=== PATIENT | female | born 1990 | race American Indian/Alaskan Native ===

== ENCOUNTER 2016-04-06 08:12 | Emergency (ER) | payer MEDICAID ==
[2016-04-06 08:49] LABS: Basophils % (Auto) 0.8 % (0.0-1.8); Eosinophils % (Auto) 2.2 % (0.0-4.3); Hematocrit 37.1 % (30.3-42.9); Hemoglobin 11.6 gm/dl (10.1-14.3); Mean Corpuscular HGB Conc 31 % (30-34); Mean Corpuscular Hemoglobin 27 pg (28-32); Mean Corpuscular Volume 87 fl (79-97); Platelet Count 329 K/mm3 (140-440); Red Blood Count 4.29 M/mm3 (3.65-5.03); Red Cell Distribution Width 16.9 % (13.2-15.2); White Blood Count 8.8 K/mm3 (4.5-11.0)
[2016-04-06 08:51] LABS: Bilirubin,Urine NEG (Negative); Blood,Urine NEG (Negative); Ketones,Urine NEG (Negative); Leukocyte Esterase,Urine NEG (Negative); Nitrite,Urine NEG (Negative); Protein,Urine <15 mg/dL mg/dL (Negative); Urobilinogen,Urine < 2.0 mg/dL (<2.0)
[2016-04-06] MEDS ORDERED: MORPHINE IV ONE (09:02)
[2016-04-06] MEDS ORDERED: ZOFRAN IV ONE (09:02)
[2016-04-06 09:06] LABS: Alanine Aminotransferase 11 units/L (7-56); Albumin 4.4 g/dL (3.9-5); Albumin/Globulin Ratio 1.1 %; Alkaline Phosphatase 69 units/L (35-129); Anion Gap 18 mmol/L; BUN/Creatinine Ratio 26.25; Bilirubin,Total 0.2 mg/dL (0.1-1.2); Blood Urea Nitrogen 21 mg/dL (7-17); Calcium 9.3 mg/dL (8.4-10.2); Carbon Dioxide 24 mmol/L (22-30); Chloride 99.2 mmol/L (98-107); Glucose 92 mg/dL (65-100); Lipase 37 units/L (13-60); Potassium 4.3 mmol/L (3.6-5.0); Sodium 137 mmol/L (137-145); Total Protein 8.5 g/dL (6.3-8.2)
--- NOTE | 2016-04-06 09:21 | Emergency Department Report ---
HPI - General Chief Complaint: Abdominal Pain Time Seen by Provider: 04/06/16 08:54 - HPI HPI: Room 3 The patient is a 25-year-old female presenting with a chief complaint of abdominal pain. The patient states her symptoms began this morning at approximately 02:00. The patient states she developed suprapubic cramping abdominal pain that increased after having intercourse. Patient states the pain has been constant and cramping in nature. Patient admits to nausea but denies vomiting or diarrhea. Patient denies dysuria, vaginal discharge or abnormal vaginal bleeding. Patient denies any history of fever. The patient states her last cycle occurred to 2016 was within normal limits. The patient currently gives her pain a score of 3/10. The patient states her last meal was before 02:00 before the onset of her pain Location: Suprapubic Region Duration: Constant since 02:00 Quality: Cramping Severity: 3/10 Modifying factors: [see above] Context: [see above] Mode of transportation: Not driving ED Past Medical Hx - Surgical History Past Surgical History?: Yes Additional Surgical History: Right breast cyst - Family History Family history: no significant - Social History Smoking Status: Never Smoker Substance Use Type: None (denies illicit drug use), Alcohol (occasional) - Medications Home Medications: Home Medications Medication Instructions Recorded Confirmed Last Taken Type HYDROcodone/APAP 5-325 [[place] 1 - 2 each PO Q6HR PRN #10 tablet 04/06/16 Unknown Rx 5/325] Ibuprofen [Motrin 800 MG tab] 800 mg PO Q8HR PRN #20 tablet 04/06/16 Unknown Rx ED Review of Systems ROS: Stated complaint: ABD PAIN Other details as noted in HPI Comment: All other systems reviewed and negative Constitutional: denies: chills, fever Eyes: denies: eye pain, eye discharge, vision change ENT: denies: ear pain, throat pain Respiratory: denies: cough, shortness of breath, wheezing Cardiovascular: denies: chest pain, palpitations Endocrine: no symptoms reported Gastrointestinal: abdominal pain, nausea. denies: vomiting Genitourinary: denies: urgency, dysuria, discharge, abnormal menses Musculoskeletal: denies: back pain, joint swelling, arthralgia Skin: denies: rash, lesions Neurological: denies: headache, weakness, paresthesias Psychiatric: denies: anxiety, depression Hematological/Lymphatic: denies: easy bleeding, easy bruising Physical Exam - Physical Exam Vital Signs: Vital Signs 04/06/16 08:19 Temperature 98.6 F Pulse Rate 75 Respiratory 18 Rate Blood Pressure 120/68 O2 Sat by Pulse 100 Oximetry Physical Exam: GENERAL: The patient is well-developed well-nourished female sleeping on stretcher not appearing to be in acute distress. [] HEENT: Normocephalic. Atraumatic. Extraocular motions are intact. Patient has moist mucous membranes. NECK: Supple. Trachea midline CHEST/LUNGS: Clear to auscultation. There is no respiratory distress noted. HEART/CARDIOVASCULAR: Regular. There is no tachycardia. There is no gallop rub or murmur. ABDOMEN: Abdomen is soft, with mild tenderness to palpation in the right lower quadrant and suprapubic region. There is no guarding. Patient has normal bowel sounds. There is no abdominal distention. SKIN: There is no rash. There is no edema. There is no diaphoresis. NEURO: The patient is awake, alert, and oriented. The patient is cooperative. The patient has normal speech MUSCULOSKELETAL: There is no CVA tenderness. There is no evidence of acute injury. ED Course Vital Signs 04/06/16 08:19 Temperature 98.6 F Pulse Rate 75 Respiratory 18 Rate Blood Pressure 120/68 O2 Sat by Pulse 100 Oximetry ED Medical Decision Making - Lab Data Result diagrams: 04/06/16 08:34 04/06/16 08:34 Laboratory Tests 04/06/16 04/06/16 04/06/16 08:34 08:34 08:35 WBC 8.8 RBC 4.29 Hgb 11.6 Hct 37.1 MCV 87 MCH 27 L MCHC 31 RDW 16.9 H Plt Count 329 Lymph % (Auto) 47.2 H [place] % (Auto) 9.0 H Eos % (Auto) 2.2 Baso % (Auto) 0.8 Lymph # 4.2 [place] # 0.8 Eos # 0.2 Baso # 0.1 Seg Neutrophils % 40.8 Seg Neutrophils # 3.6 Sodium 137 Potassium 4.3 Chloride 99.2 Carbon Dioxide 24 Anion Gap 18 BUN 21 H Creatinine 0.8 Estimated GFR > 60 BUN/Creatinine Ratio 26.25 Glucose 92 Calcium 9.3 Total Bilirubin 0.2 AST 22 ALT 11 Alkaline Phosphatase 69 Total Protein 8.5 H Albumin 4.4 Albumin/Globulin Ratio 1.1 Lipase 37 Urine Color Yellow Urine Turbidity Clear Urine pH 5.0 Ur Specific [place] 1.027 Urine Protein <15 mg/dl Urine Glucose (UA) Neg Urine Ketones Neg Urine Blood Neg Urine Nitrite Neg Urine Bilirubin Neg Urine Urobilinogen < 2.0 Ur Leukocyte Esterase Neg Urine WBC (Auto) 1.0 Urine RBC (Auto) 3.0 U Epithel Cells (Auto) < 1.0 Urine HCG, Qual Negative - Radiology Data Radiology results: report reviewed (CT abdomen and pelvis), image reviewed (CT abdomen and pelvis) CT abdomen and pelvis (read by radiologist)-thick walled cyst right adnexa with moderate amount of fluid in the cul-de-sac. - Differential Diagnosis appendicitis, uterine fibroids, UTI, ectopic Critical care attestation.: If time is entered above; I have spent that time in minutes in the direct care of this critically ill patient, excluding procedure time. ED Disposition Clinical Impression: Ovarian cyst, Abdominal pain Disposition: DISCHARGED TO HOME OR SELFCARE Is pt being admited?: No Does the pt Need Aspirin: No Condition: Stable Instructions: Abdominal Pain (ED), Ovarian Cyst (ED) Additional Instructions: Return to the emergency department immediately should you develop worsening symptoms, fever, inability to tolerate food or liquid or any other concerns. Prescriptions: HYDROcodone/APAP 5-325 [[place] 5/325] 1 - 2 each PO Q6HR PRN #10 tablet PRN Reason: Pain Ibuprofen [Motrin 800 MG tab] 800 mg PO Q8HR PRN #20 tablet PRN Reason: Pain Referrals: PRIMARY CAREMD [Primary Care Provider] - 3-5 Days BRUCE JOHN MD [Staff Physician] - 3-5 Days (Dr. John is an ALARM INSTALLER. Please follow up with him for further evaluation) Time of Disposition: 11:03
[2016-04-06 10:31] VITALS: BP 105/67
--- NOTE | 2016-04-06 10:53 | Cat Scan Report ---
CT scan of abdomen and pelvis with IV contrast: History: Right lower quadrant and suprapubic pain. Findings: Normal liver spleen pancreas and gallbladder. Normal adrenals and kidneys. Moderate amount of fluid in the cul-de-sac. There is a thick walled 3.3 x 3.4 cm cyst identified in the right adnexa. Normal appendix. Gaseous colon with large volume stool in colon. Impression: Thickwalled cyst right adnexa with moderate amount of fluid in the cul-de-sac.
== END 2016-04-06 11:03 | disposition home or self-care (01) ==
LOC: ED 08:12
DX: N83.209 Unspecified ovarian cyst, unspecified side (principal); R10.31 Right lower quadrant pain
CPT/HCPCS: 36415; 74177; 80053; 81001; 81025; 83690; 85025; 96374; 96375; 99284; J2270; J2405; Q9967